=== PATIENT | male | born 1980 | race Asian ===

== ENCOUNTER 2019-05-12 01:00 | Emergency (ER) | payer OTHER ==
[~2019-05-12] VITALS: Ht 180.3 cm; Wt 78.9 kg
[2019-05-12 02:20] VITALS: BP 109/64; TEMP 97.7
== END 2019-05-12 02:20 | disposition home or self-care (01) ==
LOC: ED 01:00
DX: T78.49XA Other allergy, initial encounter (principal); Z77.098 Contact with and (suspected) exposure to other hazardous, chiefly nonmedicinal, chemicals; X58.XXXA Exposure to other specified factors, initial encounter; Y92.69 Other specified industrial and construction area as the place of occurrence of the external cause
CPT/HCPCS: 96372; 99282; J2930

== ENCOUNTER 2019-05-18 00:07 | Emergency (ER) | payer OTHER ==
[~2019-05-18] VITALS: Ht 180.3 cm; Wt 75.3 kg
[2019-05-18 00:30] VITALS: BP 122/75; TEMP 97.6
== END 2019-05-18 03:00 | disposition home or self-care (01) ==
LOC: ED 00:07
DX: G44.209 Tension-type headache, unspecified, not intractable (principal)
CPT/HCPCS: 96372; 99282; J1885

== ENCOUNTER 2019-12-16 23:22 | Emergency (ER) | payer OTHER ==
[~2019-12-16] VITALS: Ht 180.3 cm; Wt 72.6 kg
[2019-12-17 01:30] VITALS: BP 118/76; TEMP 98.6
== END 2019-12-17 01:30 | disposition home or self-care (01) ==
LOC: ED 23:22
DX: B34.9 Viral infection, unspecified (principal); Z20.828 Contact with and (suspected) exposure to other viral communicable diseases
CPT/HCPCS: 87635; 99283; U0003

== ENCOUNTER 2020-01-25 00:11 | Emergency (ER) | payer OTHER ==
[~2020-01-25] VITALS: Ht 180.3 cm; Wt 75.3 kg
[2020-01-25 01:23] LABS: PLATELET COUNT 301 K/uL (142-355)
[2020-01-25 01:38] LABS: POTASSIUM 3.9 mmol/L (3.6-5.2)
[2020-01-25 01:46] LABS: PARTIAL THROMBOPLASTIN TIME 24.1 SECONDS (24.5-33.6)
[2020-01-25 02:57] VITALS: BP 124/75; TEMP 98.5
== END 2020-01-25 03:00 | disposition home or self-care (01) ==
LOC: ED 00:11
PROVIDERS: Family Medicine
DX: R42 Dizziness and giddiness (principal); R51 Headache
CPT/HCPCS: 36415; 80053; 80307; 81000; 85027; 85610; 85730; 99282

== ENCOUNTER 2020-03-25 23:08 | Emergency (ER) | payer OTHER ==
[~2020-03-25] VITALS: Ht 180.3 cm; Wt 75.3 kg
[2020-03-26 00:11] LABS: PLATELET COUNT 300 K/uL (142-355)
[2020-03-26 01:05] VITALS: BP 110/77; TEMP 98.1
== END 2020-03-26 01:05 | disposition home or self-care (01) ==
LOC: ED 23:08
PROVIDERS: Emergency Medicine Emergency Medical Services
DX: K52.89 Other specified noninfective gastroenteritis and colitis (principal)
CPT/HCPCS: 36415; 80048; 85027; 96360; 96375; 99284; J2405